=== PATIENT | female | born 1980 | race Caucasian/White ===

== ENCOUNTER 2023-12-21 16:25 | Inpatient (IN) | payer MEDICAID ==
[~2023-12-21] VITALS: Ht 165.1 cm; Wt 93.7 kg
[~2023-12-21 16:25] MED LIST: GABA-529 PO; LORA0.5T83 PO; TIZA-211 PO
[2023-12-21 17:14] LABS: APPEARANCE,URINE CLEAR (CLEAR); BILIRUBIN,URINE NEGATIVE (NEGATIVE); COLOR,URINE YELLOW (YELLOW); GLUCOSE, URINE (UA) NEGATIVE (NEGATIVE); KETONES,URINE NEGATIVE (NEGATIVE); LEUKOCYTE ESTERASE ,URINE 75 Leu/uL (NEGATIVE); NITRATE,URINE NEGATIVE (NEGATIVE); OCCULT BLOOD,URINE MODERATE (NEGATIVE); PH,URINE 7.5 (5.0-8.0); PROTEIN,URINE 600 mg/dL (NEGATIVE)
[2023-12-21 17:15] LABS: BASOPHILS # (AUTO) 0.02 K/uL (0.00-0.20); BASOPHILS % (AUTO) 0.3 % (0.0-5.0); HEMATOCRIT 37.7 % (36-48); IMMATURE GRANULOCYTE ABSOLUTE 0.02 K/uL (0-1); LYMPHOCYTES # (AUTO) 1.4 K/uL (1.0-4.8); LYMPHOCYTES % (AUTO) 17.1 % (21.0-51.0); MEAN CORPUSCULAR HEMOGLOBIN 25.7 pg (27.0-33.0); MEAN CORPUSCULAR HGB CONC 31.3 g/dL (32.0-36.0); MEAN CORPUSCULAR VOLUME 82.1 fL (79-99); MONOCYTES # (AUTO) 0.5 K/uL (0.1-1.0); MONOCYTES % (AUTO) 6.7 % (3.0-13.0); NEUTROPHILS % (AUTO) 75.6 % (40.0-77.0); PLATELET COUNT (AUTO) 123 K/uL (130-400); RED BLOOD CELL COUNT(AUTO) 4.59 MIL/uL (4.00-5.50); WHITE BLOOD COUNT (AUTO) 7.9 K/uL (4.8-10.8)
[2023-12-21 17:16] LABS: HCG,QUALITATIVE URINE NEGATIVE (NEGATIVE)
[2023-12-21 17:17] LABS: ADD UA MICROSCOPIC YES
[2023-12-21 17:19] LABS: BACTERIA,URINE FEW /HPF (None Seen); MUCUS,URINE RARE LPF (None Seen); SQUAMOUS EPITHELIAL CELL,UR FEW /HPF (0-2); WBC,URINE 26-50 /HPF (0-1)
[2023-12-21 17:23] LABS: AMPHET/METH SCREEN,URINE NEGATIVE (NEGATIVE); BARBITURATE SCREEN, URINE NEGATIVE (NEGATIVE); BENZODIAZEPINES SCREEN,URINE NEGATIVE (NEGATIVE); CANNABINOID SCREEN,URINE POSITIVE (NEGATIVE); COCAINE SCREEN,URINE NEGATIVE (NEGATIVE); OPIATE SCREEN,URINE NEGATIVE (NEGATIVE); PHENCYCLIDINE SCREEN,URINE NEGATIVE (NEGATIVE)
[2023-12-21 17:25] LABS: CARBON DIOXIDE 29 mmol/L (21-32); CHLORIDE 101 mmol/L (101-111); CREATININE 1.4 mg/dL (0.5-1.0); GLOMERULAR FILTR. RATE CALC 48 mL/min (>90); GLUCOSE,RANDOM 107 mg/dL (70-105); POTASSIUM 3.1 mmol/L (3.5-5.1); SODIUM SERUM 136 mmol/L (136-145); UREA NITROGEN, BLOOD 14 mg/dL (7-18)
[2023-12-21 17:28] LABS: ALANINE AMINOTRANSFERASE 8 U/L (12-78); ALBUMIN 2.8 g/dL (3.5-5.0); ASPARTATE AMINOTRANSFERASE 16 U/L (10-37); SALICYLATE < 2.8 mg/dL (2.8-20.0); TOTAL PROTEIN, SERUM 7.6 g/dL (6.0-8.3)
[2023-12-21 17:29] LABS: ACETAMINOPHEN < 1 mcg/mL (10-30); ALCOHOL, BLOOD < 3 mg/dL (0-10)
[2023-12-21] MEDS: LORazepam 2 MG/ML 1 ML VIAL IVP ONE (18:00)
[2023-12-21] MEDS: 0.9%NACL 1000ML 1,000 ML IV ONE (18:01)
[2023-12-21] MEDS: POTASSIUM CHLORIDE 10MEQ/100ML 100 ML IV ONE (18:01)
[2023-12-21] MEDS: MAGNESIUM 2GM PREMIX 50ML 50 ML IV ONE (18:07)
[2023-12-21] MEDS: cefTRIAXone 1G VIAL IVPB ONE (18:14)
[2023-12-21] MEDS ORDERED: acetaMINOPHEN 650 MG SUPPOSITORY RC PRN (21:00)
[2023-12-21] MEDS: INSULIN humuLIN R 100 UNIT/ML 3ML SQ SCH (21:00)
[2023-12-21] MEDS ORDERED: MAGNESIUM 2GM PREMIX 50ML 50 ML IV PRN (21:00)
[2023-12-21] MEDS ORDERED: KCL 20 MEQ ERTAB PO PRN (21:00)
[2023-12-21] MEDS ORDERED: TEMAZEPAM 15 MG CAPSULE PO PRN (21:00)
[2023-12-21] MEDS ORDERED: GLUCAGON 1MG KIT 1 MG ML IM PRN (21:00)
[2023-12-21] MEDS ORDERED: LACTULOSE 20 GM/30 ML UDCUP PO PRN (21:00)
[2023-12-21] MEDS ORDERED: doCUSate SODIUM 100 MG CAP PO PRN (21:00)
[2023-12-21] MEDS ORDERED: ONDANSETRON 4MG INJ IVP PRN (21:00)
[2023-12-21] MEDS ORDERED: DEXTROSE 50%-WATER 50 ML DISP.SYRIN IV PRN (21:00)
[2023-12-21 22:21] LABS: SARS-CoV-2, RNA, NAAT NEGATIVE SARS CoV-2 (NEGATIVE)
[2023-12-21 22:26] LABS: INFLUENZA TYPE A Negative For Type A (NEGATIVE); INFLUENZA TYPE B Negative For Type B (NEGATIVE)
[2023-12-21 22:40] VITALS: BP 163/98; PULSE 103; RESP 16; TEMP 98.4
[2023-12-21 23:57] VITALS: O2SAT 97
[2023-12-22] VITALS (8 sets, daily range): BP systolic 155–181; BP diastolic 89–113; PULSE 94–106; RESP 16–24; TEMP 98.4–99.4; O2SAT 96–97
[2023-12-22 00:50] LABS: ABG HCO3 23.8 mmol/L (21.0-28.0); ABG OXYGEN SATURATION 95.8 % (94.0-98.0); ABG PCO2 30 mmHg (32-45); ABG PH 7.519 (7.350-7.450); PO2, ARTERIAL BG 70.5 mmHg (83.0-108.0); VENT MODE, BG RA,21 (ROOM AIR)
[2023-12-22] MEDS ORDERED: NITROGLYCERIN 0.4 MG SL TAB SL PRN (01:00)
[2023-12-22] MEDS: NICOTINE 14 MG/ 24 HR PATCH TD SCH (01:28)
[2023-12-22 05:49] LABS: BASOPHILS # (AUTO) 0.03 K/uL (0.00-0.20); BASOPHILS % (AUTO) 0.4 % (0.0-5.0); IMMATURE GRANULOCYTE ABSOLUTE 0.02 K/uL (0-1); LYMPHOCYTES # (AUTO) 2.1 K/uL (1.0-4.8); LYMPHOCYTES % (AUTO) 28.7 % (21.0-51.0); MEAN CORPUSCULAR HGB CONC 30.5 g/dL (32.0-36.0); MEAN CORPUSCULAR VOLUME 85.3 fL (79-99); MONOCYTES # (AUTO) 0.7 K/uL (0.1-1.0); MONOCYTES % (AUTO) 9.1 % (3.0-13.0); NEUTROPHILS # (AUTO) 4.6 K/uL (1.8-7.7); NEUTROPHILS % (AUTO) 61.5 % (40.0-77.0); PLATELET COUNT (AUTO) 101 K/uL (130-400); RED BLOOD CELL COUNT(AUTO) 4.57 MIL/uL (4.00-5.50); RED CELL DISTRIBUTION WIDTH 19.4 % (11.0-15.5); WHITE BLOOD COUNT (AUTO) 7.5 K/uL (4.8-10.8)
[2023-12-22 06:03] LABS: HEMOGLOBIN A1C 5.2 % (4.0-6.0)
[2023-12-22 06:19] LABS: CREATININE 1.2 mg/dL (0.5-1.0); PHOSPHORUS 3.1 mg/dL (2.5-4.9); THYROID STIMULATING HORMONE 4.81 uIU/mL (0.36-3.74)
[2023-12-22] MEDS: POTASSIUM CHLORIDE 10MEQ/100ML 100 ML IV PRN (07:05)
[2023-12-22] MEDS: ASPIRIN 81MG CHEW TAB PO SCH (08:52)
[2023-12-22] MEDS: PANTOPRAZOLE 40 MG TAB DR PO SCH (08:52)
[2023-12-22] MEDS: CEFTRIAXONE 2GM VIAL IVPB SCH (08:52)
[2023-12-22] MEDS: ENOXAPARIN SODIUM 40 MG/0.4 ML SYRINGE SQ SCH (08:53)
[2023-12-22] MEDS: LACTATED RINGERS 1000ML 1,000 ML IV SCH (13:30)
[2023-12-22] MEDS: furoSEMIDE 40MG VIAL IV SCH (20:40)
[2023-12-22] MEDS: atorVAStatin 40 MG TABLET PO SCH (20:40)
[2023-12-22] MEDS: LORazepam 0.5 MG TABLET PO PRN (23:04)
[2023-12-22] MEDS: hydrALAZine 20MG/ML VIAL IV PRN (23:04)
[2023-12-23] VITALS (9 sets, daily range): BP systolic 137–160; BP diastolic 65–82; PULSE 73–98; RESP 18–20; TEMP 98.3–101.7; O2SAT 94
[2023-12-23 05:57] LABS: BASOPHILS # (AUTO) 0.02 K/uL (0.00-0.20); BASOPHILS % (AUTO) 0.2 % (0.0-5.0); HEMATOCRIT 32.9 % (36-48); IMMATURE GRANULOCYTE ABSOLUTE 0.02 K/uL (0-1); LYMPHOCYTES # (AUTO) 1.6 K/uL (1.0-4.8); MEAN CORPUSCULAR HEMOGLOBIN 25.5 pg (27.0-33.0); MEAN CORPUSCULAR HGB CONC 31.6 g/dL (32.0-36.0); MEAN CORPUSCULAR VOLUME 80.6 fL (79-99); MONOCYTES # (AUTO) 0.5 K/uL (0.1-1.0); MONOCYTES % (AUTO) 6.1 % (3.0-13.0); NEUTROPHILS # (AUTO) 6.5 K/uL (1.8-7.7); NEUTROPHILS % (AUTO) 75.5 % (40.0-77.0); PLATELET COUNT (AUTO) 97 K/uL (130-400); RED BLOOD CELL COUNT(AUTO) 4.08 MIL/uL (4.00-5.50); RED CELL DISTRIBUTION WIDTH 18.6 % (11.0-15.5); WHITE BLOOD COUNT (AUTO) 8.7 K/uL (4.8-10.8)
[2023-12-23 06:25] LABS: CREATININE 1.1 mg/dL (0.5-1.0)
[2023-12-23 06:26] LABS: POTASSIUM 2.7 mmol/L (3.5-5.1)
[2023-12-23] MEDS: acetaMINOPHEN 325 MG TAB PO PRN ×2 (08:43→14:19)
[2023-12-23] MEDS: POTASSIUM CHLORIDE 10% ELIXIR 20 MEQ/15 ML UDCUP PO PRN (09:13)
[2023-12-23] MEDS: POTASSIUM CHLORIDE 10MEQ SR TAB PO PRN (20:32)
[2023-12-24] VITALS: BP 149/87; PULSE 79; RESP 18; TEMP 98.5
[2023-12-24 01:05] VITALS: O2SAT 97
[2023-12-24 03:59] VITALS: BP 161/96; PULSE 85; RESP 18; TEMP 97.8
[2023-12-24 05:59] LABS: BASOPHILS # (AUTO) 0.01 K/uL (0.00-0.20); BASOPHILS % (AUTO) 0.2 % (0.0-5.0); IMMATURE GRANULOCYTE ABSOLUTE 0.01 K/uL (0-1); MEAN CORPUSCULAR HEMOGLOBIN 25.6 pg (27.0-33.0); MEAN CORPUSCULAR VOLUME 82.7 fL (79-99); MONOCYTES # (AUTO) 0.3 K/uL (0.1-1.0); MONOCYTES % (AUTO) 6.2 % (3.0-13.0); NEUTROPHILS % (AUTO) 75.4 % (40.0-77.0); PLATELET COUNT (AUTO) 78 K/uL (130-400); RED BLOOD CELL COUNT(AUTO) 5.08 MIL/uL (4.00-5.50); RED CELL DISTRIBUTION WIDTH 18.7 % (11.0-15.5); WHITE BLOOD COUNT (AUTO) 5.3 K/uL (4.8-10.8)
[2023-12-24 06:13] LABS: POTASSIUM 3.3 mmol/L (3.5-5.1)
[2023-12-24 08:00] VITALS: BP 167/101; PULSE 87; RESP 20; TEMP 98.4
[2023-12-24 08:43] VITALS: O2SAT 99
[2023-12-24] MEDS: KCL 20 MEQ ERTAB PO SCH (08:44)
[2023-12-24] MEDS ORDERED: NITR100C4 PO (11:25)
[2023-12-24] MEDS ORDERED: FURO40TA7 PO (11:55)
[2023-12-24] MEDS ORDERED: POTA-202 PO (11:55)
[2023-12-24 12:00] VITALS: BP 139/76; PULSE 90; RESP 20; TEMP 97.6
== END 2023-12-24 16:10 | disposition home or self-care (01) | DRG 720 ==
LOC: EDH 16:25 → EDHIP 16:26 → 3BH 21:46
PROVIDERS: ADMIT Internal Medicine; ATTEND Internal Medicine
DX: A41.9 Sepsis, unspecified organism (principal); G93.41 Metabolic encephalopathy; N17.9 Acute kidney failure, unspecified; D69.6 Thrombocytopenia, unspecified; E88.09 Other disorders of plasma-protein metabolism, not elsewhere classified; D63.8 Anemia in other chronic diseases classified elsewhere; I50.30 Unspecified diastolic (congestive) heart failure; I13.0 Hypertensive heart and chronic kidney disease with heart failure and stage 1 through stage 4 chronic kidney disease, or unspecified chronic kidney disease; Z20.822 Contact with and (suspected) exposure to COVID-19; N30.00 Acute cystitis without hematuria; R65.20 Severe sepsis without septic shock; N18.9 Chronic kidney disease, unspecified; E11.22 Type 2 diabetes mellitus with diabetic chronic kidney disease; R63.0 Anorexia; E83.42 Hypomagnesemia; Z72.0 Tobacco use; Z68.34 Body mass index [BMI] 34.0-34.9, adult; E66.9 Obesity, unspecified; G89.29 Other chronic pain; F12.10 Cannabis abuse, uncomplicated; Z91.199 Patient's noncompliance with other medical treatment and regimen due to unspecified reason; G31.84 Mild cognitive impairment of uncertain or unknown etiology; M54.9 Dorsalgia, unspecified; Z59.86 Financial insecurity; Z79.899 Other long term (current) drug therapy; Z79.02 Long term (current) use of antithrombotics/antiplatelets
CPT/HCPCS: 36415; 36600; 70450; 71045; 80048; 80053; 80305; 81001; 81025; 82140; 82803; 82948; 83036; 83605; 83735; 83880; 84100; 84132; 84443; 85025; 87040; 87086; 87186; 87635; 87804; 93005; 93306; 96365; 96368; 96375; G0378; G0481; J0360; J0696; J1650; J1940; J2060; J3475; J3480

== ENCOUNTER 2024-01-03 10:56 | Emergency (ER) | payer OTHER, MEDICAID ==
[~2024-01-03] VITALS: Ht 167.6 cm; Wt 97.5 kg
[~2024-01-03 10:56] MED LIST changes: +FURO40TA7 PO; +NITR100C4 PO; +POTA-202 PO
[2024-01-03 11:20] LABS: BASOPHILS # (AUTO) 0.02 K/uL (0.00-0.20); BASOPHILS % (AUTO) 0.4 % (0.0-5.0); EOSINOPHILS # (AUTO) 0.01 K/uL (0.00-0.70); EOSINOPHILS % (AUTO) 0.2 % (0.0-8.0); HEMATOCRIT 44.4 % (36-48); IMMATURE GRANULOCYTE ABSOLUTE 0.01 K/uL (0-1); LYMPHOCYTES # (AUTO) 1.9 K/uL (1.0-4.8); LYMPHOCYTES % (AUTO) 40.5 % (21.0-51.0); MEAN CORPUSCULAR HEMOGLOBIN 25.8 pg (27.0-33.0); MEAN CORPUSCULAR HGB CONC 31.1 g/dL (32.0-36.0); MONOCYTES # (AUTO) 0.4 K/uL (0.1-1.0); MONOCYTES % (AUTO) 7.7 % (3.0-13.0); NEUTROPHILS # (AUTO) 2.3 K/uL (1.8-7.7); PLATELET COUNT (AUTO) 125 K/uL (130-400); RED BLOOD CELL COUNT(AUTO) 5.35 MIL/uL (4.00-5.50); RED CELL DISTRIBUTION WIDTH 19.9 % (11.0-15.5); WHITE BLOOD COUNT (AUTO) 4.6 K/uL (4.8-10.8)
[2024-01-03 11:43] LABS: POTASSIUM 3.1 mmol/L (3.5-5.1)
[2024-01-03 12:01] LABS: B-TYPE NATRIURETIC PEPTIDE 463 pg/mL (0-100)
[2024-01-03] MEDS ORDERED: ALBUHFA IH (12:02)
[2024-01-03] MEDS ORDERED: METH4TAB3 PO (12:02)
[2024-01-03] MEDS: PoTASSium BIcarbonate/CIT AC 25 MEQ TABLET.EFF PO ONE (12:14)
[2024-01-03 12:29] LABS: INFLUENZA TYPE A Negative For Type A (NEGATIVE); INFLUENZA TYPE B Negative For Type B (NEGATIVE)
[2024-01-03 12:34] VITALS: BP 171/77; PULSE 91; RESP 19; TEMP 98.7; O2SAT 97
== END 2024-01-03 13:59 | disposition home or self-care (01) ==
LOC: EDBD 10:56 → EDH 10:56
DX: U07.1 COVID-19 (principal); R06.00 Dyspnea, unspecified; E87.6 Hypokalemia; Z79.899 Other long term (current) drug therapy
CPT/HCPCS: 36415; 80048; 83880; 85025; 87426; 87804; 93005

== ENCOUNTER 2024-01-11 17:29 | Emergency (ER) | payer OTHER, MEDICAID ==
[~2024-01-11] VITALS: Ht 167.6 cm; Wt 71.7 kg
[~2024-01-11 17:29] MED LIST changes: +ALBUHFA IH; +METH4TAB3 PO
[2024-01-11 18:00] LABS: BASOPHILS # (AUTO) 0.02 K/uL (0.00-0.20); BASOPHILS % (AUTO) 0.4 % (0.0-5.0); EOSINOPHILS # (AUTO) 0.17 K/uL (0.00-0.70); HEMATOCRIT 47.6 % (36-48); IMMATURE GRANULOCYTE ABSOLUTE 0.02 K/uL (0-1); LYMPHOCYTES # (AUTO) 1.9 K/uL (1.0-4.8); LYMPHOCYTES % (AUTO) 32.6 % (21.0-51.0); MEAN CORPUSCULAR HEMOGLOBIN 26.4 pg (27.0-33.0); MEAN CORPUSCULAR HGB CONC 31.5 g/dL (32.0-36.0); MEAN CORPUSCULAR VOLUME 83.7 fL (79-99); MONOCYTES # (AUTO) 0.4 K/uL (0.1-1.0); MONOCYTES % (AUTO) 6.2 % (3.0-13.0); NEUTROPHILS # (AUTO) 3.3 K/uL (1.8-7.7); NEUTROPHILS % (AUTO) 57.4 % (40.0-77.0); PLATELET COUNT (AUTO) 126 K/uL (130-400); RED BLOOD CELL COUNT(AUTO) 5.69 MIL/uL (4.00-5.50); RED CELL DISTRIBUTION WIDTH 19.6 % (11.0-15.5); WHITE BLOOD COUNT (AUTO) 5.7 K/uL (4.8-10.8)
[2024-01-11] MEDS: ASPIRIN 325MG TAB PO ONE (18:00)
[2024-01-11] MEDS: NITROGLYCERIN 1GM OINT 1 INCH/1GM TD ONE (18:01)
[2024-01-11 18:10] LABS: CREATININE 1.1 mg/dL (0.5-1.0); POTASSIUM 3.7 mmol/L (3.5-5.1)
[2024-01-11 18:14] LABS: ALBUMIN 3.7 g/dL (3.5-5.0); BILIRUBIN,TOTAL 0.6 mg/dL (0.2-1.0); TOTAL PROTEIN, SERUM 8.8 g/dL (6.0-8.3)
[2024-01-11 18:29] LABS: B-TYPE NATRIURETIC PEPTIDE 335 pg/mL (0-100)
--- NOTE | 2024-01-11 18:42 | ERN ---
ED Note History of Present Illness Stated Complaint: CP Chief Complaint: Chest Pain Time Seen by MD: 17:30 Time Seen by Midlevel: 17:30 Dictation: The Patient is a 43-year-old female with past medical history of hypertension, hyperlipidemia, CHF who presents to the emergency department with an episode of mid chest pain onset just prior to arrival. Patient reports pain to be throbbing and lasting only seconds. Patient denies anymore chest pain during assessment. Patient reports some shortness of breath and nonproductive cough but reports she was diagnosed with COVID on 01/03/24 and she has been coughing since. Reports pain worse with palpation. Patient denies any current fevers. Allergies: Coded Allergies: No Known Drug Allergies (Verified Allergy, Unknown, 11/07/23) Home Meds Active Scripts Methylprednisolone (Medrol) 4 Mg Tab.ds.pk, 4 MG PO AD, #1 UNIT Prov:JAY MEJIA NP 01/03/24 Albuterol Sulfate (Ventolin Hfa/Proventil Hfa/Proair Hfa) 90 Mcg Puff, 2 PUFF IH Q4H for WHEEZING, #1 INHALER 0 Refills Prov:JAY MEJIA NP 01/03/24 Potassium Chloride (Potassium Chloride) 20 Meq Tab.er.prt, 20 MEQ PO DAILY for 30 Days, #30 TAB 2 Refills Prov:RENEA BAEZ 12/24/23 Furosemide (Lasix 40Mg Tab) 40 Mg Tablet, 40 MG PO DAILY for 30 Days, #30 TAB 2 Refills Prov:RENEA BAEZ 12/24/23 Nitrofurantoin Monohyd/M-Cryst (Macrobid 100 mg Capsule) 100 Mg Capsule, 100 MG PO BID for 7 Days, #14 CAP Prov:RENEA BAEZ 12/24/23 Reported Medications Lorazepam (Ativan) 0.5 Mg Tablet, 0.5 MG PO DAILY, TAB 11/07/23 Tizanidine HCl (Tizanidine HCl) 4 Mg Tablet, 4 MG PO TID, TAB 11/07/23 Gabapentin (Gabapentin) 100 Mg Capsule, 300 MG PO DAILY, CAP 11/07/23 Past Medical History Past Medical History: Anxiety, Bipolar Surgical History: Appendectomy, Cholecystectomy Surgical History Other: LEFT KNEE History: Not Applicable RN Note Reviewed/Agreed w/PFSH: Yes Review of System Dictation Constitutional: Negative for fever,chills, and weight loss Eyes: Negative for injury, pain,redness, and discharge ENT: Negative for injury,pain or swelling Cardiovascular: Negative for palpitations, and edema. Positive for chest pain Respiratory: Negative for wheezing. Positive for shortness of breath and cough Abdomen/GI: Negative for abdominal pain, nausea, vomiting, diarrhea, and c onstipation Back: Negative for injury and pain : Negative for injury, bleeding and discharge MS/Extremity: Negative for injury and deformity Skin: Negative for rash, and discoloration Neuro: Negative for headache, weakness, numbness, tingling, and seizure Psych: Negative for suicide ideation, homicidal ideation, and hallucinations Initial Vital Sign VS Vital Signs Date Time Temp Pulse Resp B/P (MAP) Pulse Ox O2 Delivery O2 Flow Rate FiO2 01/11/24 17:31 99.0 74 16 187/97 100 Room Air 0 01/11/24 17:35 21 Physical Exam Dictation Vital Signs reviewed General Appearance: Alert, oriented x 3, no acute distress, well developed, nourished. Head and Face: non-traumatic. Eyes: PERRL, pink conjunctivas, eyelid no trauma, anterior chamber with arcus senilis. Ears: Pinnas intact and no signs of trauma or erythema ear canals clear and no discharge TM no erythema Nose: No discharge, no bleeding. Oropharynx: Mouth normal, tongue pink. pharynx clear,no erythema, tonsils no exudates, no abscesses noted, mucous membrane moist Neck: Supple, non-tender, no thyromegaly, no masses, no JVD, no bruits Breast:Deferred Chest: tenderness to mid chest with palpation, no crepitus, no paradoxical movement, no retractions Lungs:Clear, well-ventilated, symmetric, no rales, no wheezing, no rhonchi, no stridor, good breath sounds bilaterally Heart: Regular rate, regular rhythm, no murmur, no gallops Vascular: no peripheral edema, Abdomen: Soft, positive bowel sounds, nondistended, no guarding, nontender, no rebound, no masses no hepatomegaly, no splenomegaly, no Abreu's sign, no hernias. Rectal: Deferred Genital: Deferred Neurological: Normal speech, motor function intact, sensory function intact Musculoskeletal: Neck nontender, full range of motion, back nontender, full range of motion, Extremities: nontender, full range of motion Skin: Color pink, dry, no turgor, no rash, no lacerations, no abrasions, no contusions. Lymphatic: Deferred Results (Laboratory/Radiology) Laboratory/Radiology Laboratory Tests Test 01/11/24 17:51 01/11/24 18:57 White Blood Count 5.7 K/uL (4.8-10.8) Red Blood Count 5.69 MIL/uL (4.00-5.50) H Hemoglobin 15.0 g/dL (12.0-16.0) Hematocrit 47.6 % (36-48) Mean Corpuscular Volume 83.7 fL (79-99) Mean Corpuscular Hemoglobin 26.4 pg (27.0-33.0) L Mean Corpuscular Hemoglobin Concent 31.5 g/dL (32.0-36.0) L Red Cell Distribution Width 19.6 % (11.0-15.5) H Platelet Count 126 K/uL (130-400) L Mean Platelet Volume 10.0 fL (7.5-10.5) Immature Granulocyte % (Auto) 0.4 % (0-1) Neutrophils (%) (Auto) 57.4 % (40.0-77.0) Lymphocytes (%) (Auto) 32.6 % (21.0-51.0) Monocytes (%) (Auto) 6.2 % (3.0-13.0) Eosinophils (%) (Auto) 3.0 % (0.0-8.0) Basophils (%) (Auto) 0.4 % (0.0-5.0) Neutrophils # (Auto) 3.3 K/uL (1.8-7.7) Lymphocytes # (Auto) 1.9 K/uL (1.0-4.8) Monocytes # (Auto) 0.4 K/uL (0.1-1.0) Eosinophils # (Auto) 0.17 K/uL (0.00-0.70) Basophils # (Auto) 0.02 K/uL (0.00-0.20) Absolute Immature Granulocyte (auto 0.02 K/uL (0-1) Nucleated Red Blood Cells 0.0 % (0.0-0.19) Red Blood Cell Morphology See comments Sodium Level 136 mmol/L (136-145) Potassium Level 3.7 mmol/L (3.5-5.1) Chloride Level 102 mmol/L (101-111) Carbon Dioxide Level 29 mmol/L (21-32) Blood Urea Nitrogen 17 mg/dL (7-18) Creatinine 1.1 mg/dL (0.5-1.0) H Glomerular Filtration Rate Calc 64 mL/min (>90) Random Glucose 92 mg/dL (70-105) Total Calcium 9.9 mg/dL (8.5-10.1) Total Bilirubin 0.6 mg/dL (0.2-1.0) Aspartate Amino Transf (AST/SGOT) 21 U/L (10-37) Alanine Aminotransferase (ALT/SGPT) 18 U/L (12-78) Alkaline Phosphatase 77 U/L (50-136) Total Creatine Kinase 27 U/L (21-232) # Troponin I High Sensitivity 28 ng/L (4-50) 25 ng/L (4-50) B-Type Natriuretic Peptide 335 pg/mL (0-100) H Total Protein 8.8 g/dL (6.0-8.3) H Albumin 3.7 g/dL (3.5-5.0) Lipase 39 U/L (16-77) Serum Test, Qualitative NEGATIVE (NEGATIVE) REASON: cp ORDERING PHYSICIAN: RITA HOOD PROCEDURE: CXR1VW - CHEST 1VW CHEST 1VW CLINICAL HISTORY: COMPARISON: 12/21/2023 TECHNIQUE: Single view of the chest was obtained. FINDINGS: Lungs are clear. The cardiac size and mediastinum are unremarkable. The bony structures stable. IMPRESSION: No acute cardiopulmonary process identified. Labs Reviewed?: Yes EKG: (+) NSR, (+) VA (178), (+) QRS (104) EKG Comment: EKG 01/11/2024 1733 ventricular rate 74, regular rate and rhythm, sinus rhythm, prolonged QT, no STEMI ED Course ED Course Orders Procedure Category Date Status Time Cbc With Differential LAB 01/11/24 Complete 17:45 B-Type Natriuretic LAB 01/11/24 Complete Peptide 17:45 Chest 1vw RAD 01/11/24 Resulted 17:45 12 Lead Ekg Tracing- EKG 01/11/24 Logged Technical 17:45 Nitroglycerin 1gm PHA 01/11/24 Complete Oint (Nitroglycerin 1g 18:00 Creatine Kinase, Total LAB 01/11/24 Complete 17:45 Troponin I High LAB 01/11/24 Complete Sensitivity 17:45 Aspirin 325mg Tab PHA 01/11/24 Complete (Aspirin 325mg Tab) 18:00 Comprehensive LAB 01/11/24 Complete Metabolic Panel 17:45 Lipase LAB 01/11/24 Complete 17:45 Testing, LAB 01/11/24 Complete Serum Hcg 17:45 Drug Screen Urine LAB 01/11/24 Logged 17:52 Urinalysis Profile LAB 01/11/24 Logged 17:52 Hydralazine 20mg Inj PHA 01/11/24 Complete (Apresoline 20mg In 19:00 Troponin I High LAB 01/11/24 Complete Sensitivity 18:52 Current Medications Medications (Trade) Dose Ordered Sig/Herber Route PRN Reason Start Time Stop Time Status Last Admin Dose Admin Aspirin (Aspirin 325mg Tab) 325 mg ONCE ONCE PO 01/11/24 18:00 01/11/24 18:01 DC 01/11/24 18:00 Hydralazine HCl (APRESOLine 20MG INJ) 10 mg ONCE ONCE IV 01/11/24 19:00 01/11/24 19:01 DC 01/11/24 18:54 Nitroglycerin (Nitroglycerin 1gm Oint) 1 inch ONCE ONCE TD 01/11/24 18:00 01/11/24 18:01 DC 01/11/24 18:01 Vital Signs Date Time Temp Pulse Resp B/P (MAP) Pulse Ox O2 Delivery O2 Flow Rate FiO2 01/11/24 19:16 98.4 80 18 195/112 99 Room Air* 0 01/11/24 18:35 78 18 194/117 99 Room Air* 0 01/11/24 17:35 84 17 187/96 99 Room Air* 0 01/11/24 17:31 99.0 74 16 187/97 100 Room Air 0 HEART Score Response (Comments) Value History: Low suspicion (0) 0 EKG: Normal 0 Age: < 45yrs (0) 0 Risk Factors: 1-2 risk factors (+1) 1 Initial Troponin: Normal limit (0) 0 Total 1 Medical Decision Making MDM The Patient is a 43-year-old female with past medical history of hypertension, hyperlipidemia, CHF who presents to the emergency department with an episode of mid chest pain onset just prior to arrival. Patient reports pain to be throbbing and lasting only seconds. Patient denies anymore chest pain during assessment. Patient reports some shortness of breath and nonproductive cough but reports she was diagnosed with COVID on 01/03/24 and she has been coughing since. Reports pain worse with palpation. Patient denies any current fevers. Differential diagnosis: ACS, costochondritis, CHF, tachyarrhythmia, bradyarrhythmia, pneumothorax, pneumonia CBC showed no leukocytosis, no anemia, thrombocytopenia but unchanged from previous visits, chemistry showed no electrolyte imbalance, creatinine of 1.1 Unchanged from previous visits, BNP 335, improved from last visits patient appears in no fluid overload. Troponin negative x2. Patient continues with no chest pain, blood patient improvement. Patient is last visits had elevated blood pressure reports she did not take her blood pressure medication today but is not sure what medication she is on. Patient instructed to follow up with PCP. Labs and imaging discussed with the patient Need for hospitalization: Patient does not meet criteria for hospitalization. There are no social concerns with this patient. DX & DISP Disposition: Discharge Decision to Admit Time: 19:39 Departure Impression: Primary Impression: Costochondritis Additional Impressions: Uncontrolled hypertension, Elevated brain natriuretic peptide (BNP) level, Cough Condition: Stable Referrals: SELF,REFERRAL (PCP) Time of Disposition: 19:39 I have reviewed the case, and I agree with, Diagnosis and Plan RITA HOOD Jan 11, 2024 18:42
[2024-01-11] MEDS: hydrALAZine 20MG/ML VIAL IV ONE (18:54)
--- NOTE | 2024-01-11 19:09 | HMCIMG ---
CHEST 1VW CLINICAL HISTORY: cp COMPARISON: 12/21/2023 TECHNIQUE: Single view of the chest was obtained. FINDINGS: Lungs are clear. The cardiac size and mediastinum are unremarkable. The bony structures stable. IMPRESSION: No acute cardiopulmonary process identified.
[2024-01-11 19:16] VITALS: BP 195/112; PULSE 80; RESP 18; TEMP 98.4; O2SAT 99
--- NOTE | 2024-01-12 09:39 | EKG ---
[facility] Test Date: 2024-01-11 Test Time: 17:33:27 Pat Name: ARGENIS SNOW Department: [facility] Room: Gender: F Lead Caregiver: 08 : 1980 Requested By: RITA HOOD Order Number: [id number] Reading MD: Rubén Finnegan Measurements Intervals [place] Rate: 74 P: 50 DC: 178 QRS: -23 QRSD: 104 T: 20 QT: 483 QTc: 537 Interpretive Statements Sinus rhythm Probable left atrial enlargement Prolonged QT interval Compared to ECG 01/03/2024 11:23:15 Prolonged QT interval now present Electronically Signed On 01-13-2024 14:15:04 CDT by Rubén Finnegan Please click the below link to view image of tracing.
== END 2024-01-11 20:04 | disposition home or self-care (01) ==
LOC: EDH 17:29
DX: M94.0 Chondrocostal junction syndrome [Tietze] (principal); I11.0 Hypertensive heart disease with heart failure; I50.9 Heart failure, unspecified; R79.89 Other specified abnormal findings of blood chemistry; F31.9 Bipolar disorder, unspecified; F41.9 Anxiety disorder, unspecified; Z79.899 Other long term (current) drug therapy; Z90.49 Acquired absence of other specified parts of digestive tract; Z98.890 Other specified postprocedural states
CPT/HCPCS: 99285; 96374; 71045; 82550; 84484 ×2; 80053; 83880; 84703; 83690; 85025; 36415; 93005; J0360